=== PATIENT | female | born 1995 | race Caucasian/White ===

== ENCOUNTER 2018-10-20 12:41 | Outpatient (CLI) | payer OTHER ==
[~2018-10-20] VITALS: Ht 152.4 cm; Wt 66.6 kg
[2018-10-20 12:56] VITALS: Ht 152.4 cm; Wt 66.6 kg
[2018-10-20 12:57] VITALS: BP 123/69; PULSE 64; RESP 18
[2018-10-20] MEDS ORDERED: PNV11TAB PO (12:59)
--- NOTE | 2018-10-20 16:31 | PN ---
Triage Information Date/Time October 20, 2018 Reason for visit: SROM Weeks of Gestation 38 weeks and 5 days /Para 1 para 0 Diabetes: none Hypertention: none Additional information 3-year-old with IUP at 38 weeks and 5 days here was sent for rule out SROM. Denies any vaginal bleeding, decreased movement or uterine contrac tions. Antepartum course was uncomplicated by anemia, currently taking iron Objective Vital Signs Date Temp Pulse Resp B/P (MAP) Pulse Ox O2 O2 Flow FiO2 Time Delivery Rate 10/20/18 98.4 64 18 123/69 12:57 (87) Heart Rate: 130's Heart Rate Comments NST: Category 1 ALEXA: 12.2 BP: 8/8 Sterile vaginal examination: Fingertip/posterior/high Results/Medications Results 24 hrs Laboratory Tests Test 10/20/18 14:00 Membranes Rupture NEGATIVE Imaging Results PROCEDURE: US OB biophysical profile. CLINICAL INDICATION: decreased movements, spontaneous rupture of membranes TECHNIQUE: Multiple sonographic images of the pelvis were obtained. The images were reviewed on a PACS workstation. COMPARISON: No prior studies are available for comparison. FINDINGS: There is a single live intrauterine gestation. Cardiac activity is present with 144 beats per minute. There is a vertex presentation. The placenta is fundal. There is no evidence of placental abruption. There is a normal amount of amniotic fluid with an ALEXA = 12.2 cm. Biophysical profile: movement 2/2 tone 2/2. breathing 2/2 ALEXA 2/2 Total 8/8 RPTAT: AA . IMPRESSION: Normal biophysical profile. Disposition: Discharge Assessment/Plan IUP at 38 weeks and 5 days Rule out SROM No evidence of SROM Some contractions noted on the monitor but patient has not been feeling. Does not appear to the patient to be in labor. Likely false labor pain testing reassuring Patient discharged home Labor precautions and kick count discussed Advised on adequate hydration Follow-up with primary OB office within 72 hours after discharge from the hospital discussed with patient RAIMUNDO NIX MD Oct 20, 2018 16:31
--- NOTE | 2018-10-20 16:59 | TRIAGE ---
OB Triage Datetime Report Generated by CPN: 10/20/2018 16:58 Datetime: 10/20/2018 16:00 Labor Evaluation Frequency: 2-8.5 Monitor Mode: External Duration (sec)2399: 60-180 Quality: Mild Pattern: Normal: <= 5 Contractions in 10 Minutes Resting Tone [place]: Relaxed Heart Rate FHR Baseline Rate: 125 Monitor Mode: External US FHR Baseline Changes: No Baseline Change Variability: Moderate 6-25 bpm Accelerations: 15X15 Decelerations: None Category: Category I Pain Assessment Pain Scale: 3 Pain Presence: Intermittent Pain Type: Contraction; Ache Pain Location: Abdomen; Back Pain Goal: 2 Pain Relief Measures: Comfort Measures Datetime: 10/20/2018 15:50 Vaginal Exam Dilatation (cms): 0.5 Effacement (%): 0 Station: -4 Exam By: TM Datetime: 10/20/2018 15:00 Labor Evaluation Frequency: 3-8 Monitor Mode: External Duration (sec)2399: 60-120 Quality: Mild Pattern: Normal: <= 5 Contractions in 10 Minutes Resting Tone [place]: Relaxed Heart Rate FHR Baseline Rate: 135 Monitor Mode: External US FHR Baseline Changes: No Baseline Change Variability: Moderate 6-25 bpm Accelerations: 15X15 Decelerations: None Category: Category I Pain Presence: None/Denies Datetime: 10/20/2018 14:00 Labor Evaluation Frequency: 2-7 Monitor Mode: External Duration (sec)2399: 50-90 Quality: Moderate Pattern: Normal: <= 5 Contractions in 10 Minutes Resting Tone [place]: Relaxed Heart Rate FHR Baseline Rate: 125 Monitor Mode: External US FHR Baseline Changes: No Baseline Change Variability: Moderate 6-25 bpm Accelerations: 15X15 Decelerations: None Category: Category I Pain Presence: None/Denies Datetime: 10/20/2018 13:57 Stage of : OB Triage Datetime: 10/20/2018 13:03 Assessment Type: Triage Time of Arrival: 10/20/2018 12:34 EGA: 38.5 Arrived By: Ambulatory Arrived From: Home Chief Complaint: Leaking Movement: Present Contractions: Denies/Absent Rupture of Membranes: Unsure Vaginal Discharge: Denies Recent Sexual Intercouse: Denies Abdominal Trauma: Not Applicable Patient Complaints: Other Time Provider Notified: 10/20/2018 15:47 Provider Notified: Hadadian Initial Plan: NST, BPP, ROM + Maternal Assessment Level of Consciousness: Fully Conscious DTR's/Clonus: DTRs 2+; No Clonus Headache: Denies Blurred Vision: No Respiratory Effort: Unlabored; Regular Rhythm; Equal Expansion Breath Sounds, Left: Clear and Equal Breath Sounds, Right: Clear and Equal Nausea/Vomiting: Denies RUQ Epigastric Pain: Denies Lower Extremities Edema: None Degree: None Upper Extremities Edema: None Degree: None Facial Edema: None Fall Risk Assessment History of Falling: (0) No Secondary Diagnosis: (0) No Ambulatory Aid: (0) Bedrest/Nurse Assist IV Therapy: (0) No Gait: (0) Normal/Bedrest/Immobile Mental Status: (0) Oriented to Own Ability Fall Score: 0 Fall Risk Score Definition: No Risk: No action required Datetime: 10/20/2018 13:01 Time of Arrival: 10/20/2018 12:52 Arrived By: Wheelchair Arrived From: Home Chief Complaint: possible rupture of membranw Movement: Present Contractions: Occasional Time Contractions Began: 10/20/2018 07:30 Rupture of Membranes: Unsure Vaginal Bleeding: None Vaginal Discharge: Denies Recent Sexual Intercouse: Denies Abdominal Trauma: Not Applicable Patient Complaints: Contractions
== END 2018-10-20 16:35 | disposition home or self-care (01) ==
LOC: OBT 12:41 → L-D 12:42 → OBT 16:35
PROVIDERS: ATTEND Obstetrics & Gynecology
DX: O42.913 Preterm premature rupture of membranes, unspecified as to length of time between rupture and onset of labor, third trimester (principal); Z3A.38 38 weeks gestation of pregnancy
CPT/HCPCS: 76818; 84112

== ENCOUNTER 2018-10-21 19:53 | Inpatient (IN) | payer OTHER ==
[~2018-10-21] VITALS: Ht 154.9 cm; Wt 66.6 kg
[~2018-10-21 19:53] MED LIST: PNV11TAB PO
[2018-10-21 20:53] VITALS: Ht 154.9 cm; Wt 66.6 kg
[2018-10-21 20:54] VITALS: BP 140/85; PULSE 63; RESP 18
[2018-10-21] MEDS ORDERED: OXYTOCIN 30 UNITS/LR 500 ML IV SCH ×2 (22:30)
[2018-10-21] MEDS ORDERED: MISOPROSTOL 200 MCG TAB PR PRN (22:30)
[2018-10-21] MEDS ORDERED: CARBOPROST 250 MCG INJ IM PRN (22:30)
[2018-10-21] MEDS ORDERED: OXYTOCIN 30 UNITS/LR 500 ML IV PRN (22:30)
[2018-10-21] MEDS ORDERED: METHYLERGONOVINE 0.2 MG INJ IM PRN (22:30)
[2018-10-21] MEDS ORDERED: LIDOCAINE 1% (MPF) 30 ML INJ INJ PRN (22:30)
--- NOTE | 2018-10-21 22:39 | TRIAGE ---
OB Triage Datetime Report Generated by CPN: 10/21/2018 22:39 Datetime: 10/21/2018 22:28 Membrane Status: Intact Datetime: 10/21/2018 22:05 Assessment Type: Admission Assessment Vaginal Bleeding: None Time Provider Notified: 10/21/2018 21:55 Provider Notified: Level of Consciousness: Fully Conscious DTR's/Clonus: DTRs 2+; No Clonus Headache: Denies Blurred Vision: No Respiratory Effort: Unlabored; Regular Rhythm; Equal Expansion Breath Sounds, Left: Clear and Equal Breath Sounds, Right: Clear and Equal Nausea/Vomiting: Denies RUQ Epigastric Pain: Denies Facial Edema: None History of Falling: (0) No Secondary Diagnosis: (0) No Ambulatory Aid: (0) Bedrest/Nurse Assist IV Therapy: (0) No Gait: (0) Normal/Bedrest/Immobile Mental Status: (0) Oriented to Own Ability Fall Score: 0 Fall Risk Score Definition: No Risk: No action required Datetime: 10/21/2018 22:04 Time of Arrival: 10/21/2018 22:00 EGA: 38.6 Arrived By: Ambulatory Arrived From: Home Movement: Present Time Provider Notified: 10/21/2018 21:55 Provider Notified: Datetime: 10/21/2018 21:00 Dilatation (cms): 2.0 Effacement (%): 80 Station: -3 Exam By: Damion Datetime: 10/21/2018 20:56 Frequency: 5-7 Monitor Mode: External Duration (sec)2399: 70-100 Quality: Mild Pattern: Normal: <= 5 Contractions in 10 Minutes Resting Tone [place]: Relaxed FHR Baseline Rate: 135 Monitor Mode: External US FHR Baseline Changes: No Baseline Change Variability: Moderate 6-25 bpm Accelerations: 15X15 Decelerations: None Category: Category I Datetime: 10/21/2018 20:50 Time of Arrival: 10/21/2018 20:00 EGA: 38.6 Arrived By: Ambulatory Arrived From: Home Chief Complaint: UC'S Movement: Present Contractions: Denies/Absent Time Contractions Began: 10/20/2018 17:00 Rupture of Membranes: Denies Vaginal Bleeding: None Vaginal Discharge: Denies Recent Sexual Intercouse: Denies Abdominal Trauma: Not Applicable Patient Complaints: Contractions Time Provider Notified: 10/21/2018 21:55 Provider Notified: Initial Plan: EFM, VS, VE Datetime: 10/21/2018 20:14 Frequency: x1 Monitor Mode: External Duration (sec)2399: 70 Quality: Mild Pattern: Normal: <= 5 Contractions in 10 Minutes Resting Tone [place]: Relaxed FHR Baseline Rate: 145 Monitor Mode: External US Comments: placed on efm Datetime: 10/20/2018 13:03 EGA: 38.5 Fall Score: 0 Fall Risk Score Definition: No Risk: No action required
[2018-10-21] MEDS: LACTATED RINGER'S 1,000 ML IV SCH (22:59)
[2018-10-22] MEDS ORDERED: BUTORPHANOL 2 MG INJ IV PRN
[2018-10-22] MEDS ORDERED: OXYTOCIN 30 UNITS/LR 500 ML IV SCH ×2 (03:00→16:39)
--- NOTE | 2018-10-22 04:06 | PREAC ---
Date/Time of Note Date/Time of Note DATE: 10/22/18 TIME: 04:06 Anesthesia Eval and Record Evaluation Time Pre-Procedure Interview DATE: 10/22/18 TIME: 04:06 Age 23 Sex female NPO: 8 hrs Preoperative diagnosis labor pain Planned procedure epidural Past Medical History Past Medical History: None Surgery & Anesthesia Issues No known issue Meds Anticoagulation: No Beta Laura within 24 hr: No Reason Beta Laura not given: Pt. not on B-Laura Reported Medications [id number] ( 19) 1 Each Tablet, 1 TAB PO DAILY, TAB 10/20/18 Current Medications Lactated Ringer's 1,000 ml @ 125 mls/hr Q8H IV Last administered on 10/21/18at 22:59; Admin Dose 125 MLS/HR; Start 10/21/18 at 22:19 Lidocaine (Xylocaine 1% (Mpf)) 30 ml ONCE PRN INJ EPISIOTOMY; Start 10/21/18 at 22:30 Oxytocin/Lactated Ringer's 500 ml @ 500 mls/hr ONCE POST IV ; Start 10/21/18 at 22:30 Oxytocin/Lactated Ringer's 500 ml @ 125 mls/hr POST IV ; Start 10/21/18 at 22:30 Oxytocin/Lactated Ringer's 500 ml @ 0 mls/hr ONCE PRN IV VAGINAL BLEEDING; Start 10/21/18 at 22:30 Methylergonovine Maleate (Methergine) 0.2 mg ONCE PRN IM VAGINAL BLEEDING; Start 10/21/18 at 22:30 Carboprost Tromethamine (Hemabate) 250 mcg ONCE PRN IM VAGINAL BLEEDING; Start 10/21/18 at 22:30 Misoprostol (Cytotec) 1,000 mcg ONCE PRN PA VAGINAL BLEEDING; Start 10/21/18 at 22:30 Butorphanol Tartrate (Stadol) 2 mg Q2H PRN IV PAIN Last administered on 9at 00:04; Admin Dose 2 MG; Start 10/22/18 at 00:00 Oxytocin/Lactated Ringer's 500 ml @ 0 mls/hr FOR AUGMENTATION IV ; Start 10/22/18 at 03:00 Meds reviewed: Yes Allergies Coded Allergies: No Known Allergy (Unverified , 10/21/18) Allergies Reviewed: Yes Labs/Studies Labs Reviewed: Reviewed by anesthesiologist Result Diagram: 10/21/18 2215 10/21/18 2215 Laboratory Tests 10/21/18 22:15 Blood Bank Test 10/21/18 22:15 Antibody Screen NEGATIVE Blood Type O POSITIVE Rh Immune Globulin Candidate NO test: N/A Pre-procedure Exam Last vitals Vital Signs Date Temp Pulse Resp B/P (MAP) Pulse Ox O2 O2 Flow FiO2 Time Delivery Rate 10/21/18 98.7 63 18 140/85 Room Air 20:54 (103) Airway: Adequate mouth opening, Adequate thyromental dist Mallampati: Mallampati II Teeth: Normal Lung: Normal Heart: Normal ASA Physical Status ASA physical status: 2 Emergency: None Pre-operative Attestations Prior to commencing anesthesia and surgery, the patient was re-evaluated, there was verification of: *The patient's identity *The results of appropriate recent lab work and preoperative vital signs *The above evaluation not changing prior to induction *Anesthetic plan, risk benefits, alternative and complications discussed with patient/family; questions answered; patient/family understands, accepts and wishes to proceed. TAYLOR BALL DO Oct 22, 2018 04:06
[2018-10-22] MEDS ORDERED: FENTAnyl 2MCG/ML-ROPIV 0.2% 100 ML ONE (04:08)
[2018-10-22] MEDS ORDERED: NALOXONE (0.4 MG/ML) INJ IV PRN (04:30)
[2018-10-22] MEDS ORDERED: FENTAnyl 2MCG/ML-ROPIV 0.2% 100 ML BAG EPI SCH (04:30)
--- NOTE | 2018-10-22 04:34 | PAC ---
Date/Time of Note Date/Time of Note DATE: 10/22/18 TIME: 04:33 Post-Anesthesia Notes Post-Anesthesia Note Last documented vital signs Vital Signs Date Temp Pulse Resp B/P (MAP) Pulse Ox O2 O2 Flow FiO2 Time Delivery Rate 10/22/18 98.0 73 18 132/65 98 Room Air 0433 Activity: WNL Respiratory function: WNL Cardiovascular function: WNL Mental status: Baseline Pain reasonably controlled: Yes Hydration appropriate: Yes Nausea/Vomiting absent: Yes TAYLOR BALL DO Oct 22, 2018 04:34
[2018-10-22] MEDS ORDERED: ONDANSETRON 4 MG INJ ONE (09:09)
[2018-10-22] MEDS ORDERED: ONDANSETRON 4 MG INJ IV STA (09:10)
--- NOTE | 2018-10-22 09:25 | HP ---
Date/Time of Note Date/Time of Note DATE: 10/22/18 TIME: 09:12 OB - History Hx of Present Free Text/Dictation 23 years old 001 with single intrauterine at 32 weeks with YVON of 12/17/2018 complaining of leakage of fluids since 11 AM on 10/21/2018. She states good movement. She denies nausea, vomiting, shortness of breath, chest pain, headache, visual changes, vaginal bleeding. Chief Complaint: Leakage of fluid Estimated Due Date: Dec 17, 2018 : 2 Para: 1 Spontaneous : 0 Therapeutic : 0 Care: Good Care Ultrasounds: Normal mid trimester US Obstetrical Complications: None Medical Complications: None Past Family/Social History * Past Medical, Surgical, Family and Obstetric Histories reviewed from chart. OB Admission Exam Vital Signs Vital Signs Vital Signs Date Temp Pulse Resp B/P (MAP) Pulse Ox O2 O2 Flow FiO2 Time Delivery Rate 10/21/18 98.7 63 18 140/85 Room Air 20:54 (103) Physical Exam HEENT: WNL Heart: Rhythm Normal Lungs: Clear Abdomen: WNL Extremities: Normal Membranes: Ruptured (Speculum exam performed, minimal leakage of fluid seen. Nitrazine positive. ROM plus performed which was positive.) Amniotic Fluid: Clear Heart Rate: 140's Accelerations: Accelerations Present Decelerations: No Decelerations Varibility: Moderate Contractions on Admission: >10 Minutes Apart Intensity: Mild Last 72 hours Lab Results CBC & BMP 10/21/18 22:15 Liver Function Test 10/21/18 22:15 Alanine Aminotransferase (ALT/SGPT) 14 Albumin 3.6 Alkaline Phosphatase 187 H Aspartate Amino Transf (AST/SGOT) 17 Direct Bilirubin 0.00 Total Protein 7.3 OB Assessment/Plan Other plan: 23 years old 001 with single intrauterine at 32 weeks with PPROM - FHR: No sign of metabolic acidosis- Category I - Continuous EFM, toco - CBC, blood type and screen - Urinalysis, urine culture - GBS - US for EFW and ALEXA - Magnesium sulfate for neuro protection per protocol - Betamethasone 12 mg daily for 2 doses for maturity of lung - Antibiotic for prolonged latency. Ampicillin 2 g every 6 hours and azithromycin 500 mg daily for 48 hours and then ampicillin 250 mg and erythromycin 333 mg every 8 hours for 5 days epidural per patient request - Perinatology and neonatology consult - Obtain record - Please see the orders Admission, labs and management discussed in detail with patient. She expressed understanding. All of her questions answered. VANESA WARD Oct 22, 2018 09:24
[2018-10-22] MEDS: LACTATED RINGER'S 1,000 ML IV SCH (09:55)
[2018-10-22] MEDS ORDERED: ACETAMINOPHEN 500 MG TAB ONE (10:57)
[2018-10-22] MEDS ORDERED: AMPICILLIN 2 GM/NS (PMX) 100 ML ONE (10:57)
[2018-10-22] MEDS: AMPICILLIN 2 GM/NS (PMX) 100 ML IVPB SCH ×4 (10:58→23:18)
[2018-10-22] MEDS ORDERED: ACETAMINOPHEN 500 MG TAB PO STA (11:05)
[2018-10-22] MEDS: GENTAMICIN 80 MG/NS (PMX) 50 ML IVPB SCH ×2 (12:05→17:37)
--- NOTE | 2018-10-22 12:59 | HP ---
Date/Time of Note Date/Time of Note DATE: 10/22/18 TIME: 12:51 OB - History Hx of Present Free Text/Dictation Late entry note. Patient seen on 10/21/2018 23 years old 1 with single intrauterine at 39 weeks with a YVON of 10/29/2018 complaining of leakage of fluid since 11 AM on 10/21/2018 she states good movement. She denies nausea, vomiting, shortness of breath, chest pain, headache, visual changes, vaginal bleeding. Chief Complaint: Leakage of fluid Last Menstrual Period: Jan 12, 2018 Estimated Due Date: Oct 29, 2018 : 1 Care: Good Care Ultrasounds: Normal mid trimester US Obstetrical Complications: None Medical Complications: None Past Family/Social History * Past Medical, Surgical, Family and Obstetric Histories reviewed from chart. Blood Type: O+ Rubella: immune RPR/VDRL: Negative GBS Status: Negative HBsAG: Negative OB Admission Exam Vital Signs Vital Signs Vital Signs Date Temp Pulse Resp B/P (MAP) Pulse Ox O2 O2 Flow FiO2 Time Delivery Rate 10/22/18 98.8 12:24 10/21/18 63 18 140/85 Room Air 20:54 (103) Physical Exam HEENT: WNL Heart: Rhythm Normal Lungs: Clear Abdomen: WNL Extremities: Normal Reflexes: Normal Cervical Dilatation: 2cm Effacement: 75% Station: -2 Membranes: Ruptured (Clear leakage of fluid seen, positive nitrazine and drum plus) Amniotic Fluid: Clear Heart Rate: 140's Accelerations: Accelerations Present Decelerations: No Decelerations Varibility: Moderate Contractions on Admission: 6-10 Minutes Apart Intensity: Mild Last 72 hours Lab Results CBC & BMP 10/21/18 22:15 Liver Function Test 10/21/18 22:15 Alanine Aminotransferase (ALT/SGPT) 14 Albumin 3.6 Alkaline Phosphatase 187 H Aspartate Amino Transf (AST/SGOT) 17 Direct Bilirubin 0.00 Total Protein 7.3 OB Assessment/Plan Other plan: Keep me 20 C/s- MP After the patient was under satisfactory epidural anesthesia, which had been placed while the patient was in labor and topped off to allow us to perform surgery, she was prepped and draped in the usual manner. Pfannenstiel incision was made with a knife and the abdomen entered in layers. Peritoneum was bluntly entered and opened vertically. A bladder blade and Lake retractor were introduced. The knife was then used to incise the lower uterine segment, staying well above the bladder reflection. The blunt end of the knife handle was then used to get into the amniotic cavity where clear fluid was noted. The uterine incision was then extended bilaterally with the multi needle machine operator's fingers. The vertex was grasped and delivered. The oropharynx and nasopharynx were well suctioned, the nuchal cord was reduced. The rest of the infant was delivered atraumatically. The cord was milked, clamped and cut. The baby was handed off to the resuscitative team, pronounced Apgars of 8 and 9. Cord blood was obtained. Placenta was then removed from the uterus. The uterus was exteriorized, wrapped in a moist lap sponge, bluntly curetted with moist lap packs and prepared for closure. The uterus was closed with a single running suture of 0 Vicryl with additional figure-of-8 sutures of 2-0 Vicryl placed for hemostasis. Posterior cul-de-sac was cleaned of all blood and clot. The uterus was then placed back into the abdomen. Both lateral gutters were cleaned. Lower segment was again inspected. Hemostasis appeared to be satisfactory. We then prepared to close. Peritoneum was reapproximated with a running suture of 2-0 Vicryl, fascia closed with a single running suture of 0 Vicryl. Subcutaneous tissue was irrigated. Small bleeders cauterized. Skin was reapproximated with a 4-0 Monocryl in a subcuticular manner with the subcutaneous tissue being reapproximated beforehand with a running suture of 3-0 plain catgut. Suture strips were applied. Sterile dressing was applied. The patient was then taken out of the OR and brought to the recovery area in stable and satisfactory condition. Sponge, instrument, and needle count correct times 3 by the OR staff. Pineda catheter draining clear yellow urine. Laparoscopy-EP DATE OF SERVICE: @DATE@ PATIENT NAME: DATE OF : PREOPERATIVE DIAGNOSIS: adnexal mass possible ectopic POSTOPERATIVE DIAGNOSIS: adnexal mass - ectopic . SURGEON: Mallorie Ward MD [employer] SURGEON: ANESTHESIOLGIST: ANESTHESIA: General endotracheal anesthesia {Op note anesthesia types:63190} OPERATION PERFORMED: 1. Operative laparoscopy. 2. Removal of adnexal mass - ectopic 3. Suction Irrigation of hemoperitonieum FINDINGS: Pelvic exam under anesthesia: External genitalia: normal. Vagina: minimal bleeding. Cervix without lesion. Uterus normal size, mobile, anteverted. Adnexa: No palpable mass bilateral/on side. There was acm mobile mass at adnexa Laparoscopic finding: There was approximately mL of blood in the peritoneum. Uterus top normal, mobile. Normal tube and ovary. ovary was normal. There was a cm hemorrhagic mass at one third of distal tube. ESTIMATED BLOOD LOSS FROM SURGERY: Minimal. INTRAVENOUS FLUIDS: mL URINE OUTPUT: mL clear SPECIMEN: fallopian tube with products of conception. COMPLICATIONS: None INDICATIONS AND HISTORY: 26 y.o. with abdominal pain, adnexal mass and positive hCG. Physical examination, labs,ultrasound and treatment options discussed with the patient and her . She would like to have laparoscopic removal of ectopic . Risks of surgery, including but not limited to infection, Bleeding,injury to other organs (bladder, ureter, vessels, nerves), blood transfusion,blood transfusion related infection,risk of anesthesia, removal of uterus, fallopian tubes, ovaries,laparotomy or any other indicated surgery discussed with the patient and her family. She voiced understanding. All of her questions answered. She signed informed consent. PROCEDURE IN DETAIL: The patient was identified and the procedure verified as operative laparoscopy, removal of adnexal mass. The patient was given general anesthesia without difficulty. Patient placed in lithotomy position. She was catheterized in the usual sterile fashion. Then, she was prepped and draped. A HUMI manipulator was placed within the cervix. Then, 0.5 cm umbilical incision after injection of 25 percent Marcaine was made through which a Veress needle was passed. Pneumoperitoneum was established. A 5 mm trocar was passed through the umbilical incision without difficulty. The above findings noted. The second and third skin incision was made at the right and left side of the abdomen. 5 and 10 mm trocars were advanced under direct visualization. Then, the peritoneal blood was suction irrigated. The fallopian tube was identified through its entire length. As noted above, there was a cm hemorrhagic mass at the distal one third of the fallopian tube which was grasped with a grasper. Then the fallopian tube was clamped with a few bites, cauterized and cut using Halo. At the end of the procedure, there was no active bleeding. The adnexal mass removed from the incision by endobag. At the end of the procedure, there was no active bleeding. At the end, suction irrigation was performed again to remove all blood and clot. Adequate hemostasis was noted. The trocar was removed under direct visualization. The trocars was removed and the fascia was closed using endo stitch with 0 Vicryl. Adequate hemostasis was noted from the ancillary trocar site. Then umbelical trocar was removed. Intraaperitoneal CO2 was expressed. The Umbilical incision and 5 and 10 mm incisions on right and left side of the abdomen were closed with 4-0 Monocryl. Estimated blood loss from surgery was minimal. Sponge, needle and instrument count were correct X3. There was no intraoperative complications. The uterine manipulator was removed from the vagina with no bleeding. The patient tolerated the procedure well. She was extubated in the operating room and transferred to the recovery room in stable condition. She will admit for 23 hour observation. The patient received one gram Ancef 30 minutes prior to surgery. D&C Treatment option with R/B/A/FR discussed. A procedure, risks, alternatives and questions session was held with the patient. Dilation and curettage, hysteroscopy, removal of intrauterine mass with the risk of bleeding, infection, uterine perforation, injury of other organs: bowel, bladder, ureter, vessels, and nerves if uterine perforation occurs, blood transfusion, blood transfusion-related infection, scar formation, incomplete procedure, needs for repeat procedure, risks of anesthesia were discussed in detail with the patient. In the event of life threatening bleeding, she accepts the usage of bl ood products. She expressed understanding and repeat the risks and has agreed with plan. All of her Qs answered. The surgical procedures, her anticipated hospital stay and recovery were discussed. She has received written preoperative instructions. All questions were answered She voiced understanding and repeat the risks. She will be signed informed consent. Operative Note Santo Almaguer : 01/22/1992 ADMISSION DATE AND TIME08/23/2018 5:09 Date of Procedure: 08/26/2018 Pre-operative Diagnosis: 26 y.o. with abnormal uterine bleeding Post-operative Diagnosis: Per pathology Operative Procedure: 1. Dilatation and curettage 2. Diagnostic Hysteroscopy Surgeon: Mallorie Ward MD Blueprint Reader: None Anesthesia: General endo tracheal anesthesia Estimated Blood Loss: minimal IV Fluid: ml Specimens: Endometrial tissue. Complications: None Findings: 1. Exam under anesthesia: External genitalia and vagina normal. Cervix: Multiparouswithout lesions and non-friable. Uterus: Normal size, Mobile, anteverted. Adnexa: No palpable mass (bilateral). 2. Hysteroscopic finding: Normal uterine cavity, both ostia of the fallopian tube were noted in the normal position and appeared normal. INDICATION AND HISTORY: A 26 y.o. with abnormal uterine bleeding. Dilatation and curettage, hysteroscopy with the risk of bleeding, infection, uterine perforation, injury to other organs: bowel, bladder, ureter, vessels, and nerves if uterine perforation occurs, incomplete procedure, blood transfusion, blood transfusion-related infection, scar formation, risks of anesthesia discussed in detail with the patient. She voiced understanding. All of her questions answered. She signed the informed consent. DESCRIPTION OF OPERATION: The patient was identified and the procedure verified. She was given general anesthesia and placed in a modified dorsolithotomy position. The patient was examined under general anesthesia with the above findings. The patient was then prepped and draped in the normal sterile fashion. A weighted speculum was used to visualize the cervix which was grasped on the anterior lip with a single- tooth tenaculum. The uterus sounded to cm, then the cervix was dilated with Hegar dilators to # . Then a 5 mm hysteroscope was primed and introduced through the cervical os and guided under direct visualization through the uterine cavity. The above finding was noted. The cervix was dilated more with Hegar dilators to # . Then a small curette was gently introduced into the uterine cavity and endometrial curettage was performed yielding moderate amounts of normal appearing endometrial tissue. Specimens sent to Pathology. Then tenaculum removed. There was no bleeding from the tenaculum site. The patient tolerated the procedure well. She was extubated in the operating room and transfer to the recovery room in stable condition. Electronically signed: Electronically signed by: Mallorie Ward MD 08/26/2018 18:20 08/26/2018 18:20 Operative Note Santo Almaguer : 01/22/1992 ADMISSION DATE AND TIME08/23/2018 5:09 Date of Procedure: 08/26/2018 Pre-operative Diagnosis: 26 y.o. with abnormal uterine bleeding Post-operative Diagnosis: Per pathology Operative Procedure: 1. Dilatation and curettage 2. Operative Hysteroscopy 3. Hysteroscopic removal of intrauterine mass by MyoSure Surgeon: Mallorie Ward MD Blueprint Reader: None Anesthesia: General endo tracheal anesthesia Estimated Blood Loss: minimal IV Fluid: ml Specimens: Endometrial tissue. Complications: None Findings: 1. Exam under anesthesia: External genitalia and vagina normal. Cervix: Multiparouswithout lesions and non-friable. Uterus: Normal size, Mobile, anteverted. Adnexa: No palpable mass (bilateral). 2. Hysteroscopic finding: Normal uterine cavity, both ostia of the fallopian tube were noted in the normal position and appeared normal. INDICATION AND HISTORY: A 26 y.o. with abnormal uterine bleeding. Dilatation and curettage, hysteroscopy, removal of intrauterine mass with the risk of bleeding, infection, uterine perforation, injury to other organs: bowel, bladd er, ureter, vessels, and nerves if uterine perforation occurs, incomplete procedure, blood transfusion, blood transfusion-related infection, scar formation, risks of anesthesia discussed in detail with the patient. She voiced understanding. All of her questions answered. She signed the informed consent. DESCRIPTION OF OPERATION: The patient was identified and the procedure verified. She was given general anesthesia and placed in a modified dorsolithotomy position. The patient was examined under general anesthesia with the above findings. The patient was then prepped and draped in the normal sterile fashion. A weighted speculum was used to visualize the cervix which was grasped on the anterior lip with a single- tooth tenaculum. The uterus sounded to cm, then the cervix was dilated with Hegar dilators to # . Aquilex fluid control system primed, the deficit alarm adjusted and the intrauterine pressure set. Then a 5 mm hysteroscope was introduced through the cervical os and guided under direct visualization through the uterine cavity. The above finding was noted. MyoSure tissue removal device introduced through the operative port. The cutter is connected to a vacuum source which continuously aspirates resected tissue through a side-facing cutting window in the outer tube. The intact specimen which captured in a vacuum canister tissue trap sent to pathology department. Excellent homeostasis was noted with no evidence of uterine perforation. Then the cervix was dilated more with Hegar dilators to # and a small curette was gently introduced into the uterine cavity and endometrial curettage was performed in all four quadrants yielding moderate amounts of normal appearing endometrial tissue. Specimens sent to Pathology. Then tenaculum removed. There was no bleeding from the tenaculum site. The patient tolerated the procedure well. She was extubated in the operating room and transfer to the recovery room in stable condition. Then the hysteroscope was primed again, no further intra uterine mass and hemostasis noted. It was difficult to distend the uterus as the cervical os was very patent and fluid continued to escape from this area. Endometrial poly were, wasgrasped with polyp forceps and removed. Electronically signed: Electronically signed by: Mallorie Ward MD 08/26/2018 18:20 08/26/2018 18:20 Operative Note Santo Villasenor Tripp : 01/22/1992 ADMISSION DATE AND TIME08/23/2018 5:09 Date of Procedure: 08/26/2018 Pre-operative Diagnosis: 26 y.o. with incomplete missed Post-operative Diagnosis: same Operative Procedure: Dilatation and suction curettage Surgeon: Mallorie Ward MD Blueprint Reader: Anesthesia: General endotracheal anesthesia Anesthesiologist: Estimated Blood Loss: mL IV Fluid: ml Specimens: Product of conception Complications: None Findings: Exam under anesthesia: External genitalia and vagina normal, some produce of conception seen. Cervix-: Multiparouswithout lesions and non-friable. Uterus: weeks size, mobile, anteverted. Adnexa: No palpable mass (bila teral) INDICATION AND HISTORY: A 26 y.o. at @[place] with missed . Treatment option: Expectant management, treatment with misoprostol, and dilatation and suction curettage discussed with patient and her family. The patient would like to have dilatation and suction curettage. Risk of surgery including but not limited to bleeding, infection, uterine perforation, injury to other organs: bowel, bladder, ureter, vessels, and nerves if uterine perforation occurs, blood transfusion, blood transfusion-related infection, scar formation, risks of anesthesia, other indicated surgery discussed in detail with the patient. She voiced understanding. All of her questions Were answered. She signed the informed consent. PROCEDURE IN DETAIL: The patient was identified, and the procedure verified. She was given general anesthesia without difficulty and placed in a modified dorsal lithotomy position. The patient was examined under general anesthesia with the above findings. The patient was then prepped and draped in normal sterile fashion. The bladder was drained by insertion of staright catheter. Then weighted speculum side-open speculum was used to visualize the cervix, which was grasped on the anterior lip with a single-tooth tenaculum. Products of conception was expelling from cervical os, which was grasped with ring forceps and Removed. The uterus sounded to 12 cm. Then a #9 suction curette was introduced into the uterine cavity. Suction curettage was performed in a 360- degree fashion until no further tissue was obtained. There was approximately 100 mL bleeding, IM Methergine was given. Then a sharp curette was gently introduced into the uterine cavity until a gritty texture was felt in all 4 quadrants. The suction curettage was introduced again to remove the remaining clots and debris, no further tissue was obtained. There was about 150 g tissue which was sent to pathology. Tenaculum and speculum were removed. There was no bleeding from the tenaculum site. The patient tolerated the procedure well. She was extubated in the operating room and transferred to the recovery room in stable condition. 23 years old 1 with single intrauterine at 39 weeks old with spontaneous rupture of membranes in early labor - FHR: No sign of metabolic acidosis- Category I - Continuous EFM, toco - CBC, blood type and screen - Analgesia options with R/B/A discussed in detail with patient - Epidural per patient request - Please see the orders - O+/Rubella: Immune - GBS: negative Admission, procedures, expectations, risks and possible complications have been discussed in detail with the patient. Risk of vaginal delivery including but not limited to bleeding, infection, cervical laceration, placental retention, injury to fetus, blood transfusion, blood transfusion related infection, risk of anesthesia, adhesion, cervical laceration, episiotomy/laceration, possible delivery with risk of bleeding, infection, injury to other organs (bowel, bladder, ureter, vessels, nerves), injury to fetus, blood transfusion, blood transfusion related infection, risk of anesthesia, scar and hernia formation, needs for future , removal of uterus or any other indicated surgery discussed with the patient. She expressed understanding and repeats the risks. All of her questions were answered. She signed the informed consent. PHYSICIAN'S VERIFICATION OF INFORMED CONSENT The patient was counseled regarding the procedure, its indications, risks, potential complications and alternatives and any questions were answered. Consent was obtained. PLANNED PROCEDURE/TREATMENT: Vaginal delivery, episiotomy, repair of laceration possible delivery MALLORIE WARD Oct 22, 2018 12:59
[2018-10-22] MEDS ORDERED: MINERAL OIL LIGHT 10 ML VIAL TOP ONE (16:00)
[2018-10-22] MEDS ORDERED: HYDROCODONE/APAP (5/325) TAB PO ONE (16:00)
--- NOTE | 2018-10-22 16:38 | LDN ---
Date/Time of Note Date/Time of Note DATE: 10/22/18 TIME: 16:35 Delivery Summary 23 years old 1 with single intrauterine at 39 weeks delivered a viable male over second-degree perineal laceration at 15:45. Nose and mouth suction. There was tight nuchal cord x1 which clamp and cut. Rest of body delivered. Baby given to the nurse. Placenta delivered spontaneously and intact. Laceration repaired with 3-0 Vicryl. Patient tolerated procedure well. Weight 7 pounds-3170 g Height 21 inches 7 at 1 minutes and 9 at 5 minutes Placenta sent to pathology for rule out Chrio EBL 200 mL Weeks of Gestation 39 weeks Placenta Delivered: Spontaneously Meconium: none Episiotomy: No Estimated blood loss: 200 Sponge & Needle done & correct: Yes All needle counts correct: Yes Any foreign bodies felt in the: No Infant Delivery Information Sex Infant Sex: male Apgars 1 Minute: 7 5 Minute: 9 10 Minute: 10 Suctioning Nose & mouth suctioned at matt: Yes Umbilical Cord Umbilical cord with: 3 Vessels Cord presentations: nuchal cord Nuchal cord present X: 1 Cord Blood was obtained: Yes Mother & Baby Disposition Disposition Mom & Baby to Maternity; Good: Yes VANESA WARD Oct 22, 2018 16:38
[2018-10-22] MEDS ORDERED: CARBOPROST 250 MCG INJ IM PRN (17:00)
[2018-10-22] MEDS ORDERED: ACETAMINOPHEN 325 MG TAB PO PRN (17:00)
[2018-10-22] MEDS ORDERED: MISOPROSTOL 200 MCG TAB PR PRN (17:00)
[2018-10-22] MEDS ORDERED: METHYLERGONOVINE 0.2 MG TAB PO PRN (17:00)
[2018-10-22] MEDS ORDERED: METHYLERGONOVINE 0.2 MG INJ IM PRN (17:00)
[2018-10-22] MEDS ORDERED: OXYTOCIN 30 UNITS/LR 500 ML IV PRN (17:00)
[2018-10-22] MEDS ORDERED: LANOLIN HPA 1 PKT TOP PRN (17:00)
[2018-10-22] MEDS ORDERED: IBUPROFEN 600 MG TAB ONE (17:36)
[2018-10-22] MEDS ORDERED: IBUPROFEN 800 MG TAB ONE (17:40)
[2018-10-22] MEDS: IBUPROFEN 800 MG TAB PO SCH (17:42)
[2018-10-22 20:30] VITALS: BP 133/70; PULSE 80; RESP 18
[2018-10-22] MEDS: SENNA/DOCUSATE NA (8.6MG/50MG) TAB PO SCH (21:35)
[2018-10-23] MEDS: DEXTROSE 5%-LR 1,000 ML IV SCH ×4 (00:39→16:39)
[2018-10-23 01:00] VITALS: BP 127/63; PULSE 83; RESP 17
[2018-10-23] MEDS: GENTAMICIN 80 MG/NS (PMX) 50 ML IVPB SCH ×3 (03:32→19:48)
[2018-10-23 03:45] VITALS: BP 113/58; PULSE 85; RESP 19
[2018-10-23] MEDS: AMPICILLIN 2 GM/NS (PMX) 100 ML IVPB SCH ×2 (05:27→12:41)
[2018-10-23] MEDS: IBUPROFEN 800 MG TAB PO SCH ×3 (05:28→21:14)
[2018-10-23 08:00] VITALS: BP 120/67; PULSE 75; RESP 18
[2018-10-23] MEDS: SENNA/DOCUSATE NA (8.6MG/50MG) TAB PO SCH ×2 (08:52→21:14)
[2018-10-23] MEDS ORDERED: DIPHTH/TET/ACEL PERTUSS (ADULT) 0.5 ML VIAL IM* ONE (11:00)
[2018-10-23] MEDS ORDERED: HYDROCODONE/APAP (5/325) TAB PO PRN (11:00)
[2018-10-23 12:00] VITALS: BP 127/74; PULSE 69; RESP 17
[2018-10-23] MEDS: HYDROCODONE/APAP (5/325) TAB PO SCH ×2 (14:01→21:14)
[2018-10-23 15:50] VITALS: BP 121/86; PULSE 60; RESP 18
[2018-10-23 19:20] VITALS: BP 126/77; PULSE 62; RESP 19
--- NOTE | 2018-10-23 21:07 | QN ---
Documentation Comment day #1 Status post VS - Last 72 Hours, by Label Date Temp Pulse Resp B/P (MAP) Pulse Ox O2 O2 Flow FiO2 Time Delivery Rate 10/23/18 97.6 60 18 121/86 Room Air 15:50 (98) 10/23/18 98.1 69 17 127/74 Room Air 12:00 (91) 10/23/18 98.4 75 18 120/67 Room Air 08:00 (84) 10/23/18 98.5 85 19 113/58 Room Air 03:45 (76) 10/23/18 98.7 83 17 127/63 Room Air 01:00 (84) 10/22/18 98.3 80 18 133/70 Room Air 20:30 (91) 10/22/18 98.8 12:24 10/22/18 100.7 10:58 10/21/18 98.7 63 18 140/85 Room Air 20:54 (103) Hematology - 72 Hrs Test 10/21/18 22:15 10/22/18 19:33 10/23/18 06:56 Hematocrit 33.8 % (37.0-47.0) 35.5 % (37.0-47.0) 29.9 % (37.0-47.0) L L L Hemoglobin 10.8 11.1 9.6 g/dl (12.0-16.0) L g/dl (12.0-16.0) g/dl (12.0-16.0) L L Mean Corpuscular 27.1 pg (29.0-33.0) 26.4 27.1 Hemoglobin L pg (29.0-33.0) L pg (29.0-33.0) L Mean Corpuscular 32.0 31.3 32.1 Hemoglobin Concent g/dl (32.0-37.0) g/dl (32.0-37.0) g/dl (32.0-37.0) L Mean Corpuscular 84.7 84.5 84.5 Volume fl (82.0-101.0) fl (82.0-101.0) fl (82.0-101.0) Mean Platelet 10.5 fl (7.4-10.4) 10.5 fl (7.4-10.4) 10.5 fl (7.4-10.4) Volume H H H Platelet Count 288 262 225 10^3/UL (140-415) 10^3/UL (140-415) 10^3/UL (140-415) Red Blood Count 3.99 4.20 3.54 10^6/ul (4.20-5.40) 10^6/ul (4.20-5.40 10^6/ul (4.20-5.40 L ) ) L Red Cell 14.2 % (11.5-14.5) 14.2 % (11.5-14.5) 14.6 % (11.5-14.5) Distribution Width H White Blood Count 10.9 20.0 16.8 10^3/ul (4.8-10.8) 10^3/ul (4.8-10.8) 10^3/ul (4.8-10.8) H #H H Chemistry Test 10/21/18 22:15 10/22/18 19:33 Sodium Level 138 mmol/L (135-144) 135 mmol/L (135-144) Potassium Level 3.8 mmol/L (3.5-5.1) 3.6 mmol/L (3.5-5.1) Chloride Level 107 mmol/L (97-110) 108 mmol/L (97-110) Carbon Dioxide Level 21 mmol/L (21-31) 18 mmol/L (21-31) L Anion Gap 10 (5-13) 9 (5-13) Blood Urea Nitrogen 9 mg/dl (7-20) 10 mg/dl (7-20) Creatinine 0.38 mg/dl (0.44-1.00) L 0.72 mg/dl (0.44-1.00) Est Glomerular Filtrat > 60 mL/min (>60) > 60 mL/min (>60) Rate mL/min Glucose Level 88 mg/dl (70-220) 150 mg/dl (70-220) Uric Acid 4.6 mg/dl (3.1-7.9) 7.0 mg/dl (3.1-7.9) # Calcium Level 9.2 mg/dl (8.4-10.2) 9.0 mg/dl (8.4-10.2) Total Bilirubin 0.1 mg/dl (0.2-1.3) L 0.1 mg/dl (0.2-1.3) L Direct Bilirubin 0.00 mg/dl (0.00-0.20) 0.00 mg/dl (0.00-0.20) Indirect Bilirubin 0.1 mg/dl (0-1.1) 0.1 mg/dl (0-1.1) Aspartate Amino 17 IU/L (15-46) 41 IU/L (15-46) Transf (AST/SGOT) Alanine 14 IU/L (13-69) 7 IU/L (13-69) L Aminotransferase (ALT/SGPT) Alkaline Phosphatase 187 IU/L (42-121) H 175 IU/L (42-121) H Total Protein 7.3 g/dl (6.1-8.1) 6.0 g/dl (6.1-8.1) #L Albumin 3.6 g/dl (3.3-4.9) 3.0 g/dl (3.3-4.9) L Globulin 3.70 g/dl (1.3-3.2) H 3.00 g/dl (1.3-3.2) Albumin/Globulin Ratio 0.97 1.00 Fundus firm Perineum intact Extremities nontender Assessment and plan Encouraged to ambulate Continue with routine care HEATH INIGUEZ MD Oct 23, 2018 21:07
[2018-10-24] MEDS: DEXTROSE 5%-LR 1,000 ML IV SCH ×2 (00:39→08:39)
[2018-10-24 04:00] VITALS: BP 113/65; PULSE 67; RESP 20
[2018-10-24] MEDS: GENTAMICIN 80 MG/NS (PMX) 50 ML IVPB SCH (04:00)
[2018-10-24] MEDS: IBUPROFEN 800 MG TAB PO SCH (05:38)
[2018-10-24] MEDS: HYDROCODONE/APAP (5/325) TAB PO SCH (05:39)
[2018-10-24 08:00] VITALS: BP 113/67; PULSE 60; RESP 18
[2018-10-24] MEDS: SENNA/DOCUSATE NA (8.6MG/50MG) TAB PO SCH (10:59)
--- NOTE | 2018-10-24 12:53 | QN ---
Documentation Comment PPD#2 is stable No VB +BM +voids VS stable Gen NAD Abd soft NT ND Genitalia No blood at perineum --->Discharge home --->Follow up in 2 wks --->Precautions discussed Questions answered JULIEN HEBERT M.D. Oct 24, 2018 12:53
--- NOTE | 2018-10-24 12:54 | DS ---
Date/Time of Note Date/Time of Note DATE: 10/24/18 TIME: 12:53 Discharge Summary Admission/Discharge Info Admit Date/Time Oct 21, 2018 at 22:15 Discharge Date/Time 10/24/2018 Discharge Diagnosis Patient Condition: Good Hospital Course uneventful Home Meds Reported Medications [id number] ( 19) 1 Each Tablet, 1 TAB PO DAILY, TAB 10/20/18 Primary Care Provider Not On Staff Doctor Pending Labs Laboratory Tests Test 10/24/18 06:47 10/24/18 12:04 Lab Scanned Report REFER[facility] [id number] White Blood Count 11.3 10^3/ul (4.8-10.8) Red Blood Count 3.50 10^6/ul (4.20-5.40) Hemoglobin 9.6 g/dl (12.0-16.0) Hematocrit 30.2 % (37.0-47.0) Mean Corpuscular Volume 86.3 fl (82.0-101.0) Mean Corpuscular Hemoglobin 27.4 pg (29.0-33.0) Mean Corpuscular 31.8 g/dl (32.0-37.0) Hemoglobin Concent Red Cell Distribution Width 14.6 % (11.5-14.5) Platelet Count 240 10^3/UL (140-415) Mean Platelet Volume 10.1 fl (7.4-10.4) Immature Granulocytes % 0.800 % (0.001-0.429) Neutrophils % 74.5 % (39.0-77.0) Lymphocytes % 15.3 % (15.0-51.0) Monocytes % 7.5 % (0.0-11.0) Eosinophils % 1.5 % (0.0-7.0) Basophils % 0.4 % (0.0-2.0) Nucleated Red Blood Cells % 0.0 /100WBC (0.0-0.0) Immature Granulocytes # 0.090 10^3/ul (0.0-0.031) Neutrophils # 8.4 10^3/ul (1.6-7.5) Lymphocytes # 1.7 10^3/ul (0.8-2.9) Monocytes # 0.9 10^3/ul (0.3-0.9) Eosinophils # 0.2 10^3/ul (0.0-0.5) Basophils # 0.0 10^3/ul (0.0-0.1) Nucleated Red Blood Cells # 0.0 10^3/ul (0.0-0.0) JULIEN HEBERT M.D. Oct 24, 2018 12:54
[2018-10-25] MEDS ORDERED: DIPHTH/TET/ACEL PERTUSS (ADULT) 0.5 ML VIAL IM* ONE (09:00)
[2018-10-25] MEDS ORDERED: MEASLES,MUMPS,RUBELLA VACCINE INJ SC* ONE (09:00)
== END 2018-10-24 15:55 | disposition home or self-care (01) | DRG 807 ==
LOC: OBT 19:53 → L-D 19:54 → OBT 22:15 → L-D 22:15 → PP1 10-22 20:14
PROVIDERS: ADMIT Obstetrics & Gynecology; ATTEND Obstetrics & Gynecology
PROC: 10E0XZZ Delivery of Products of Conception, External Approach (ICD-10-PCS; principal; 2018-10-22)
PROC: 3E033VJ Introduction of Other Hormone into Peripheral Vein, Percutaneous Approach (ICD-10-PCS; principal; 2018-10-22)
PROC: 6A550ZT Pheresis of Cord Blood Stem Cells, Single (ICD-10-PCS; principal; 2018-10-22)
PROC: 0KQM0ZZ Repair Perineum Muscle, Open Approach (ICD-10-PCS; principal; 2018-10-22)
DX: O80 Encounter for full-term uncomplicated delivery (principal); Z37.0 Single live birth; Z3A.39 39 weeks gestation of pregnancy
CPT/HCPCS: 62319; 80053; 81001; 84560; 85025; 85384; 85610; 85730; 86592; 86850; 86900; 86901; 87340; 88307; 99464; G0463; J0290; J0595; J1580; J2210; J2405; J2590; J3010; J7120; J7121